=== PATIENT | male | born 1995 | race Caucasian/White ===

== ENCOUNTER 2018-12-31 08:34 | Day surgery (SDC) | payer OTHER ==
[~2018-12-31 08:34] MED LIST: BUPIVACAINE HCL 0.5 % INJ/PF 30 ML SDV ONE; CEFAZOLIN 2 GM/D5W RTU 2 GM/50 ML RTUPB IV ONE; CEFAZOLIN 2 GM/D5W RTU 2 GM/50 ML RTUPB IV PRN; LIDOCAINE 1% INJ-PF (10 MG/ML) 30 ML SDV ONE
[2018-12-31] MEDS ORDERED: MIDAZOLAM 2 MG/2 ML INJ ONE (09:54)
[2018-12-31] MEDS ORDERED: DEXAMETHASONE SOD PHOSPHATE INJ 4 MG/1 ML VIAL ONE (09:54)
[2018-12-31] MEDS ORDERED: LIDOCAINE 2% INJ-PF (100 MG/5 ML) SYRINGE ONE (09:54)
[2018-12-31] MEDS ORDERED: FENTANYL CITRATE INJ/PF 100 MCG/2 ML AMPUL ONE (09:54)
[2018-12-31] MEDS ORDERED: PROPOFOL INJ 200 MG/20 ML VIAL IV ONE (09:55)
[2018-12-31] MEDS ORDERED: ONDANSETRON HCL INJ/PF 4 MG/2 ML SDV ONE (09:55)
[2018-12-31] MEDS ORDERED: HYDROMORPHONE HCL INJ/PF 2 MG/ML AMPULE ONE (09:55)
[2018-12-31] MEDS ORDERED: ACETAMINOPHEN 1,000 MG/100 ML RTUPB IV ONE (09:55)
--- NOTE | 2018-12-31 11:58 | OPERATIVE REPORT E ---
Operative Report NAME: OTTO DEAN : 1995 AGE: 23Y DATE OF SURGERY: 12/31/2018 ROOM: PREOPERATIVE DIAGNOSIS: RIGHT 5TH PROXIMAL PHALANX BASE FRACTURE, DISPLACED. POSTOPERATIVE DIAGNOSIS: RIGHT 5TH PROXIMAL PHALANX BASE FRACTURE, DISPLACED. OPERATION: OPEN REDUCTION AND INTERNAL FIXATION RIGHT 5TH PROXIMAL PHALANX. SURGEON: AMBER ASTUDILLO M.D. ANESTHESIA: General. ESTIMATED BLOOD LOSS: Minimal. COMPLICATIONS: None. IMPLANT: Gauri hand set 2.3 module. 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 PROCEDURE: Following the induction of general anesthesia and administration of antibiotics, the patient was positioned supine on the operating room table. Bony prominences were padded. A tourniquet was placed proximally on the right arm, but not inflated. The right upper extremity was sterilely prepped with ChloraPrep and draped in standard fashion. The arm was exsanguinated and the tourniquet inflated to 100 mmHg. Longitudinal incision was made along the length of the proximal phalanx in its ulnar shaft. Sharp incision was performed through the skin, blunt dissection through subcutaneous tissue. Care was taken to identify and protect the superficial branching nerves. The extensor tendon was mobilized and protected. Under image intensification, the fracture was reduced. A locking 2.3 T-plate was used. Screw was placed into the proximal phalanx in locking mode to hold the proximal phalanx to the plate. This was additionally supplemented by a non-locking screw in the other proximal hole and an angled non-locking screw from the shaft of the plate into the base fragment to get a firm hold of that proximal fragment. Once held, the proximal fragment was reduced back to the shaft and held with 3 bicortical screws. Image intensification was brought in, which demonstrated excellent alignment of the fracture in both the AP, lateral and oblique planes. The wound was then irrigated. Skin reapproximated with Nylon suture. 0.25% Marcaine was injected for postoperative analgesia, and a bulky sterile dressing was applied. The patient tolerated the procedure well without complications and was brought to the recovery room in stable condition. DICTATING PHYSICIAN: AMBER ASTUDILLO M.D. [id number] PHY#: [id number] ID: [id number] JOB#: [id number] ACCT: [id number] cc:AMBER ASTUDILLO M.D. >
[2018-12-31] MEDS ORDERED: OXYCODONE-ACETAMINOPHEN 5-325 MG TABLET PO PRN (11:59)
[2018-12-31] MEDS ORDERED: MORPHINE SULFATE 10 MG/ML INJ IV PRN (12:07)
[2018-12-31] MEDS ORDERED: PROMETHAZINE HCL INJ 25 MG/1 ML VIAL IV PRN ×2 (12:07)
[2018-12-31] MEDS ORDERED: ONDANSETRON HCL INJ/PF 4 MG/2 ML SDV IV PRN ×2 (12:07→12:30)
[2018-12-31] MEDS ORDERED: DIPHENHYDRAMINE HCL 50 MG/ML VIAL IV PRN (12:07)
[2018-12-31] MEDS ORDERED: FENTANYL CITRATE INJ/PF 100 MCG/2 ML AMPUL IV PRN ×3 (12:07)
[2018-12-31] MEDS ORDERED: MEPERIDINE HCL/PF INJ 25 MG/1 ML DISP.SYRIN IV PRN (12:07)
[2018-12-31] MEDS ORDERED: OXYCODONE-ACETAMINOPHEN 5-325 MG TABLET ONE (12:36)
--- NOTE | 2018-12-31 12:43 | RADIOLOGY REPORT (SQ) ---
EXAM DESCRIPTION: FINGER RIGHT; NO CHG FLUORO COMPLETED DATE/TIME: 12/31/2018 12:37 pm REASON FOR STUDY: ORIF RT FINGER ASST WITH FLUORO IN OR S62.611A DISP FX OF PROXIMAL PHALANX OF LEF T INDEX FINGER, I COMPARISON: None. FLUOROSCOPY TIME: 1 minutes 3 seconds Spot images saved to PACS. TECHNIQUE: Intra-operative images acquired during surgical procedure to evaluate progress. NUMBER OF IMAGES: 4 LIMITATIONS: None. FINDINGS: Fluoroscopy was provided for intraoperative procedure. Please refer to the operative repo rt for further discussion. IMPRESSION: IMAGE(S) OBTAINED DURING PROCEDURE. COMMENT: Quality ID 145: Final reports for procedures using fluoroscopy that document radiation exp osure indices, or exposure time and number of fluorographic images (if radiation exposure indices are not available) Please consult full operative report of the attending physician for description of the procedure. TECHNICAL DOCUMENTATION: JOB ID: [id number] [employer]- All Rights Reserved Reading location - IP/workstation name: [email or web address]
--- NOTE | 2018-12-31 12:43 | RADIOLOGY REPORT (SQ) ---
EXAM DESCRIPTION: FINGER RIGHT; NO CHG FLUORO COMPLETED DATE/TIME: 12/31/2018 12:37 pm REASON FOR STUDY: ORIF RT FINGER ASST WITH FLUORO IN OR S62.611A DISP FX OF PROXIMAL PHALANX OF LEF T INDEX FINGER, I COMPARISON: None. FLUOROSCOPY TIME: 1 minutes 3 seconds Spot images saved to PACS. TECHNIQUE: Intra-operative images acquired during surgical procedure to evaluate progress. NUMBER OF IMAGES: 4 LIMITATIONS: None. FINDINGS: Fluoroscopy was provided for intraoperative procedure. Please refer to the operative repo rt for further discussion. IMPRESSION: IMAGE(S) OBTAINED DURING PROCEDURE. COMMENT: Quality ID 145: Final reports for procedures using fluoroscopy that document radiation exp osure indices, or exposure time and number of fluorographic images (if radiation exposure indices are not available) Please consult full operative report of the attending physician for description of the procedure. TECHNICAL DOCUMENTATION: JOB ID: [id number] [employer]- All Rights Reserved Reading location - IP/workstation name: [email or web address]
[2018-12-31 13:40] VITALS: BP 111/68
== END 2018-12-31 13:35 | disposition home or self-care (01) ==
LOC: OROUT 08:34
PROVIDERS: ATTEND Orthopaedic Surgery
DX: S62.611A Displaced fracture of proximal phalanx of left index finger, initial encounter for closed fracture (principal); X58.XXXA Exposure to other specified factors, initial encounter; Y93.61 Activity, american tackle football; Y92.69 Other specified industrial and construction area as the place of occurrence of the external cause; Y99.1 Military activity
CPT/HCPCS: 73140; 26735; C1713 ×7; J2250; J3490; J1100; J2001; J1170; J2405; J2704; J0690; J0131; 01830; J3010